=== PATIENT | female | born 1970 | race Caucasian/White ===

== ENCOUNTER 2019-11-27 07:34 | Outpatient (CLI) | payer OTHER, SELFPAY ==
--- NOTE | ~2019-11-27 | MM_ITS ---
EXAMINATION: MM screening chris BI w oumar HISTORY: Screening TECHNIQUE: Craniocaudal and mediolateral oblique 3-D tomosynthesis images were obtained and synthetic 2-D images were generated. CAD analysis was submitted and interpreted. COMPARISON: No prior mammogram is available for comparison at this institution. BREAST PARENCHYMAL COMPOSITION: The breasts are heterogeneously dense, which may obscure small masses . FINDINGS: There are asymmetries with possible architectural distortion centrally in the left breast. There is no mammographic evidence for malignancy in the right breast. IMPRESSION: 1. Left breast asymmetries with possible architectural distortion. 2. Additional mammographic views and possible breast ultrasound are recommended. BI-RADS Category 0: Incomplete: Needs additional imaging evaluation. Reviewed, dictated and finalized at location A. IMPRESSION: 1. Left breast asymmetries with possible architectural distortion. 2. Additional mammographic views and possible breast ultrasound are recommended . BI-RADS Category 0: Incomplete: Needs additional imaging evaluation.
== END 2019-11-27 07:35 | disposition home or self-care (01) ==
LOC: ANHIMG 07:40
PROVIDERS: PCP Family Medicine; Visit Provider Obstetrics & Gynecology
DX: Z12.31 Encounter for screening mammogram for malignant neoplasm of breast (principal); R92.8 Other abnormal and inconclusive findings on diagnostic imaging of breast
CPT/HCPCS: 77063; 77067

== ENCOUNTER 2019-12-25 11:07 | Outpatient (CLI) | payer OTHER, SELFPAY ==
--- NOTE | ~2019-12-25 | MMUS_ITS ---
EXAMINATION: MM diagnostic mammo unilat LT, US breast LT complete HISTORY: Follow-up left breast asymmetries TECHNIQUE: Additional 3-D tomosynthesis images of the left breast were performed and synthetic 2-D im ages were generated. CAD analysis was submitted and interpreted. High resolution left breast ultrasou nd was performed. COMPARISON: Comparison to multiple prior studies sequentially, with oldest reviewed study dated 10/17. BREAST PARENCHYMAL COMPOSITION: The breasts are heterogenously dense, which may obscure small masses. FINDINGS: MAMMOGRAPHIC FINDINGS: No discrete mass is identified. No discrete architectural distortion. No suspicious calcifications. ULTRASOUND: Complete left breast ultrasound: Normal heterogeneous echotexture without focal solid or cystic mass. IMPRESSION: 1. Probable benign asymmetry of the left breast. No sonographic correlate. 2. Recommend 6 month follow-up diagnostic left mammogram BI-RADS category 3, probably benign findings. Reviewed, dictated and finalized at location A. EQUIPMENT OPERATOR IMPRESSION: 1. Probable benign asymmetry of the left breast. No sonographic correlate. 2. Recommend 6 month follow-up diagnostic left mammogram BI-RADS category 3, probably benign findings.
== END 2019-12-25 11:08 | disposition home or self-care (01) ==
LOC: ANHIMG 11:09
PROVIDERS: PCP Family Medicine; Visit Provider Obstetrics & Gynecology
DX: R92.8 Other abnormal and inconclusive findings on diagnostic imaging of breast (principal)
CPT/HCPCS: 76641; 77065

== ENCOUNTER 2020-02-12 09:38 | Outpatient (NON) | payer OTHER, SELFPAY ==
[2020-02-12 17:51] LABS: SARS-CoV-2 RNA PCR Positive
== END 2020-02-12 09:39 ==
LOC: ANHCOVIDDT 09:40
PROVIDERS: PCP Family Medicine; Visit Provider Physician Assistant Medical
DX: U07.1 COVID-19 (principal)
CPT/HCPCS: 87635; C9803; U0003

== ENCOUNTER 2020-04-23 11:43 | Outpatient (CLI) | payer OTHER, SELFPAY ==
--- NOTE | ~2020-04-23 | MMUS_ITS ---
EXAMINATION: MM diagnostic chrsi BI w oumar, US breast LT complete HISTORY: Right breast pain. Left breast asymmetry. TECHNIQUE: Additional 3-D tomosynthesis images of the breasts were performed and synthetic 2-D images were generated. CAD analysis was submitted and interpreted. High resolution complete left breast ult rasound was performed. COMPARISON: Comparison to multiple prior studies sequentially, with oldest reviewed study dated 10/17. BREAST PARENCHYMAL COMPOSITION: Breast composed of scattered areas of fibroglandular density. FINDINGS: MAMMOGRAPHIC FINDINGS: There are no suspicious masses, calcifications or architectural distortion in either breast to sugges t malignancy. ULTRASOUND: Complete left breast ultrasound: Normal heterogeneous echotexture without focal mass. IMPRESSION: 1. No evidence for malignancy in either breast. 2. Routine yearly screening mammogram and regular clinical breast examination are recommended. BI-RADS Category 1: Negative Reviewed, dictated and finalized at location A. R FRAMER IMPRESSION: 1. No evidence for malignancy in either breast. 2. Routine yearly screening mammogram and regular clinical breast examination a re recommended. BI-RADS Category 1: Negative
== END 2020-04-23 11:44 | disposition home or self-care (01) ==
PROVIDERS: PCP Family Medicine; Visit Provider Obstetrics & Gynecology
DX: R92.8 Other abnormal and inconclusive findings on diagnostic imaging of breast (principal)
CPT/HCPCS: 76641; 77062; 77066; G0279

== ENCOUNTER 2022-03-10 01:26 | Day surgery (SDC) | payer OTHER, SELFPAY ==
[2022-02-24 11:54] VITALS: BMI 33.8
[2022-03-10 06:55] VITALS: BP 119/76; PULSE 91; RESP 20; TEMP 36.4; O2SAT 98
[2022-03-10] MEDS: LACTATED RINGERS 1,000 ML 150 ML IV CONT (07:09)
--- NOTE | 2022-03-10 08:21 | PM.HPGS ---
History of Present Illness History of Present Illness Consent: Risks, benefits, and alternatives have been discussed and questions answered. Patient agrees to proceed with procedure. Chief complaint: neoplasm screening Narrative: Lucero Combs is a 51 year old female here for first screening colonoscopy Review of Systems Constitutional: Constitutional: Denies headache(s) and Denies weakness Eyes: Eyes: Denies blurry vision ENT: Reports Normal hearing present, Denies headache(s) and Denies neck pain Cardiovascular: Cardiovascular: Denies chest pain and Denies dyspnea Respiratory: Respiratory: Denies dyspnea Gastrointestinal: Gastrointestinal: Reports no additional gastrointestinal complaints Genitourinary: Genitourinary: Denies dysuria Musculoskeletal: Musculoskeletal: Denies neck pain Integumentary/Breasts: Skin/Breast: Denies dry skin Neurologic: Reports Normal hearing present, Denies headache(s) and Denies weakness Psychiatric: Psychiatric: Denies anxiety Endocrine: Endocrine: Denies change in body appearance Hematologic/Lymphatic: Hematologic/Lymphatic: Denies easy bleeding Allergic/Immunologic: Allergic/Immunologic: Denies urticaria PMFSH Past Medical History Medical History (Updated 12/26/21 @ 11:38 by Lisandra Painter DO) Unspecified hearing loss, left ear Surgical History Surgical History History of delivery (~2003) History of delivery (~2005) Hx of foot surgery Family History Family History Father Hypertension Grandparent Family history of cardiovascular disease Malignant neoplasm of prostate Family history of malignant neoplasm of brain Family history of malignant neoplasm of breast Other Family history of malignant neoplasm Social History Social History (Updated 12/26/21 @ 11:27 by Darlene Borja CMA) Smoking status: Former smoker Tobacco type: cigarettes Smoking end date: 06/22/97 Alcohol intake: current Alcohol use details: rarely Substance use type: does not use Lack of Transportation: No Lack of Food: Never True Current Housing: I Have Housing Concerned About Future Housing: No Difficulty Paying Gas/Electric Bills: No Difficulty Paying for Meds: No Currently Unemployed: No Education: Bachelor's Degree Difficulty w/ Childcare or Family Care: No Living arrangements: with family Spiritual care concerns: No Meds Home Medications and Allergies Home Medications Medication Instructions Recorded Confirmed Type multivitamin 1 tablet PO DAILY 01/03/19 02/24/22 History cetirizine 10 mg tablet (Zyrtec) 10 mg PO DAILY PRN Allergy Symptoms 07/23/20 02/24/22 History drospirenone (contraceptive) 4 mg 4 mg PO DAILY 07/23/20 03/10/22 History (28) tablet (Slynd) fluticasone propionate 50 2 spray intranasal DAILY PRN 12/24/20 02/24/22 History mcg/actuation nasal Allergy Symptoms spray,suspension (Flonase Allergy Relief) albuterol sulfate 90 mcg/actuation 1 inh inhalation Q4H PRN shortness 08/01/21 02/24/22 Rx aerosol inhaler (ProAir HFA) of breath or wheezing #8.5 grams sertraline 25 mg tablet 25 mg PO DAILY 02/24/22 03/10/22 History cyclobenzaprine 10 mg tablet See Rx Instructions .Route 03/06/22 03/10/22 Rx .COMPLEX #30 tabs Allergies Allergy/AdvReac Type Severity Reaction Status Date / Time Penicillins Allergy Unknown Skin Verified 03/10/22 06:53 Reaction terbutaline Allergy Unknown Unknown Verified 03/10/22 06:53 Vital Signs Vital Signs - 24 hr 03/10/22 06:55 Temperature 97.6 F Pulse Rate 91 Respiratory Rate 20 Blood Pressure 119/76 Pulse Oximetry 98 Oxygen Delivery Room Air Exam Const: General: comfortable and no acute distress HENMT: Face/Nose/Sinus: Normal nares present Eyes: General: appearance normal, both eyes and all related structures
--- NOTE | 2022-03-10 08:23 | WPDANESEPPF ---
Anes - Initial Pre Proc Eval Procedure: Operation Date: 03/10/22 08:00 Proposed Procedures p Screening Colonoscopy - Anant Thayer MD Date/Time: 03/10/22 08:23 Surgeon: Anant Thayer MD Pre Op Diagnosis: neoplasm screening Patient Data Age: 51 Gender: F Height: 1.57 m Weight: 81.6 kg Last Vital Signs Temp 97.6 F 03/10/22 06:55 Pulse 91 03/10/22 06:55 Resp 20 03/10/22 06:55 BP 119/76 03/10/22 06:55 Pulse Ox 98 03/10/22 06:55 O2 Del Method Room Air 03/10/22 06:55 Allergies Allergy/AdvReac Type Severity Reaction Status Date / Time Penicillins Allergy Unknown Skin Verified 03/10/22 06:53 Reaction terbutaline Allergy Unknown Unknown Verified 03/10/22 06:53 Home Medications Medication Instructions Recorded Confirmed Type multivitamin 1 tablet PO DAILY 01/03/19 02/24/22 History cetirizine 10 mg tablet (Zyrtec) 10 mg PO DAILY PRN Allergy Symptoms 07/23/20 02/24/22 History drospirenone (contraceptive) 4 mg 4 mg PO DAILY 07/23/20 03/10/22 History (28) tablet (Slynd) fluticasone propionate 50 2 spray intranasal DAILY PRN 12/24/20 02/24/22 History mcg/actuation nasal Allergy Symptoms spray,suspension (Flonase Allergy Relief) albuterol sulfate 90 mcg/actuation 1 inh inhalation Q4H PRN shortness 08/01/21 02/24/22 Rx aerosol inhaler (ProAir HFA) of breath or wheezing #8.5 grams sertraline 25 mg tablet 25 mg PO DAILY 02/24/22 03/10/22 History cyclobenzaprine 10 mg tablet See Rx Instructions .Route 03/06/22 03/10/22 Rx .COMPLEX #30 tabs Patient hx anesthesia problems: none Family hx anesthesia problems: none Results Review: All pre-operative results and documents have been reviewed as part of the pre-operative evaluation. [facility] Past Medical History Medical History (Updated 12/26/21 @ 11:38 by Lisandra Painter DO) Unspecified hearing loss, left ear Surgical History Surgical History History of delivery (~2003) History of delivery (~2005) Hx of foot surgery Family History Family History Father Hypertension Grandparent Family history of cardiovascular disease Malignant neoplasm of prostate Family history of malignant neoplasm of brain Family history of malignant neoplasm of breast Other Family history of malignant neoplasm Social History Social History (Updated 12/26/21 @ 11:27 by Darlene Borja [facility]) Smoking status: Former smoker Tobacco type: cigarettes Smoking end date: 06/22/97 Alcohol intake: current Alcohol use details: rarely Substance use type: does not use Lack of Transportation: No Lack of Food: Never True Current Housing: I Have Housing Concerned About Future Housing: No Difficulty Paying Gas/Electric Bills: No Difficulty Paying for Meds: No Currently Unemployed: No Education: Bachelor's Degree Difficulty w/ Childcare or Family Care: No Living arrangements: with family Spiritual care concerns: No Anes - Eval Final PreProcedure Day of Procedure 03/10/22 08:23 Patient weight: obese Heart: regular rate and rhythm Lungs: clear to auscultation Airway: Mallampati scale class II Neurological: alert and oriented Last oral intake: >/= 8 hours ASA classification: II Emergent: no Anesthetic plan: proceed Anesthesia type and monitoring: general GIVS and standard monitoring Results Review: All pre-operative results and documents have been reviewed as part of the pre-operative evaluation. Informed Consent: The patient's anesthetic plan and its attendant risks and benefits were discussed with the patient/family/POA. Questions were solicited and answers provided to the satisfaction of the patient/family/POA.
[2022-03-10 08:46] VITALS: BP 114/75; PULSE 82; RESP 21; O2SAT 99
[2022-03-10 08:56] VITALS: BP 122/79; PULSE 71; RESP 17; O2SAT 100
[2022-03-10 09:06] VITALS: BP 121/82; PULSE 75; RESP 19; O2SAT 100
== END 2022-03-10 09:10 | disposition home or self-care (01) ==
PROVIDERS: PCP Family Medicine; Visit Provider Internal Medicine Gastroenterology
PROC: 0DJD8ZZ Inspection of Lower Intestinal Tract, Via Natural or Artificial Opening Endoscopic (ICD-10-PCS; CPT 45378; principal; 2022-03-10 08:00)
DX: Z12.11 Encounter for screening for malignant neoplasm of colon (principal); D12.2 Benign neoplasm of ascending colon; K51.90 Ulcerative colitis, unspecified, without complications; K64.8 Other hemorrhoids; Z79.51 Long term (current) use of inhaled steroids; Z87.891 Personal history of nicotine dependence; E66.9 Obesity, unspecified; Z68.32 Body mass index [BMI] 32.0-32.9, adult
CPT/HCPCS: 45380; 88305; J2704; J7120

== ENCOUNTER 2022-03-27 11:40 | Emergency (ER) | payer OTHER, SELFPAY ==
[2022-03-27 12:01] VITALS: BP 122/97; PULSE 89; RESP 16; TEMP 36.6; O2SAT 99
--- NOTE | 2022-03-27 12:10 | ED.URI ---
HPI - URI/Sore Throat General Stated Complaint: ear pain/drainage, congestion Time Seen by Provider: 03/27/22 12:05 Source: patient Mode of arrival: ambulatory Limitations: no limitations History of Present Illness HPI Narrative: Jason is a 51-year-old female patient presenting to the clinic today with complaints of sinus congestion and ear pain x2 weeks. She reports that her ears have been bothering her off and on with of runny nose. States that she is congested and at times having runny nose with clear nasal drainage. She denies any known fever or chills. She denies any sinus pressure at this time. She has been [id number] decongestants for her symptoms MD elicited complaint: sore throat and nasal congestion Related Data Home Medications Medication Instructions Recorded Confirmed multivitamin 1 tablet PO DAILY 01/03/19 03/27/22 cetirizine 10 mg tablet (Zyrtec) 10 mg PO DAILY PRN Allergy Symptoms 07/23/20 03/27/22 drospirenone (contraceptive) 4 mg 4 mg PO DAILY 07/23/20 03/27/22 (28) tablet (Slynd) fluticasone propionate 50 2 spray intranasal DAILY PRN 12/24/20 03/27/22 mcg/actuation nasal Allergy Symptoms spray,suspension (Flonase Allergy Relief) sertraline 25 mg tablet 25 mg PO DAILY 02/24/22 03/27/22 Allergies Allergy/AdvReac Type Severity Reaction Status Date / Time Penicillins Allergy Unknown Skin Verified 03/27/22 12:27 Reaction terbutaline Allergy Unknown Unknown Verified 03/27/22 12:27 Review of Systems Review of Systems: Pertinent positives per HPI. Patient denies any fever, chills, rash, headache, visual changes, dizziness, shortness of breath, chest pain, palpitations, nausea, vomiting, diarrhea, constipation, abdominal pain, or any urinary issues. [facility] Past Medical History Medical History Unspecified hearing loss, left ear Surgical History Surgical History History of delivery (~2003) History of delivery (~2005) Hx of foot surgery Family History Family History Father Hypertension Grandparent Family history of cardiovascular disease Malignant neoplasm of prostate Family history of malignant neoplasm of brain Family history of malignant neoplasm of breast Other Family history of malignant neoplasm Social History Social History Smoking status: Former smoker Tobacco type: cigarettes Smoking end date: 06/22/97 Alcohol intake: current Alcohol use details: rarely Substance use type: does not use Lack of Transportation: No Lack of Food: Never True Current Housing: I Have Housing Concerned About Future Housing: No Difficulty Paying Gas/Electric Bills: No Difficulty Paying for Meds: No Currently Unemployed: No Education: Bachelor's Degree Difficulty w/ Childcare or Family Care: No Living arrangements: with family Spiritual care concerns: No Comments At the time of my signature, I reviewed and agree with the nursing past medical, surgical, social, and family history. There is no relevant family history pertinent to the patient complaint. Exam Narrative: General: Well-developed, obese, in no apparent distress Head: Normocephalic, atraumatic Eyes: Pupils equally round and reactive to light bilaterally, EOM intact, sclera and conjunctive clear, no discharge, lids normal Ears: TMs intact and clear, ear canals clear, no drainage, grossly hearing normal. Nose: Nares patent, clear nasal discharge, moderate inflammation, no sinus tenderness. Mouth: Oral pharynx without lesions or masses, good dentition, MMM. Postnasal drip Neck: Supple, trachea midline, no enlargement of anterior or posterior cervical nodes, no thyroid masses or goiter palpable. Cardio: Regular rate an
== END 2022-03-27 12:13 | disposition home or self-care (01) ==
PROVIDERS: Emergency Provider Nurse Practitioner Family; PCP Family Medicine
DX: J06.9 Acute upper respiratory infection, unspecified (principal); H69.93 Unspecified Eustachian tube disorder, bilateral; Z87.891 Personal history of nicotine dependence
CPT/HCPCS: 99213; G0463

== ENCOUNTER 2022-10-20 12:12 | Outpatient (CLI) | payer OTHER, SELFPAY ==
--- NOTE | ~2022-10-20 | XR_ITS ---
Left Knee Technique: AP, lateral, sunrise, and oblique views were obtained. Clinical History: Pain Findings: No fracture or dislocation is seen. Osseous alignment is anatomic. Minimal patellar spurrin g noted. Soft tissues are unremarkable. No joint effusion is seen. Impression: Minimal patellar spurring. Reviewed, dictated and finalized at location . Impression: Minimal patellar spurring.
== END 2022-10-20 12:13 ==
PROVIDERS: PCP Family Medicine; Visit Provider Family Medicine
DX: M25.562 Pain in left knee (principal)
CPT/HCPCS: 73564

== ENCOUNTER → 2022-11-18 07:28 | Outpatient (CLI) | payer OTHER, SELFPAY ==
--- NOTE | ~2022-11-18 | MR_ITS ---
EXAMINATION: MR knee LT wo con DATE: 11/18/2022 08:10 INDICATION: left knee medial burning pain posterior pain x1yr, TECHNIQUE: Magnetic resonance imaging (MRI) of the left knee was performed without intravenous contra st. Sequences included axial PD-weighted FS FSE, coronal PD-weighted FSE and PD-weighted FS FSE, sagi ttal PD-weighted FSE, and sagittal T2-weighted FS FSE. COMPARISON: None. FINDINGS: Medial compartment: Meniscus intact. Mild diffuse cartilage thinning. Minimal osteophytosis. Lateral compartment: Meniscus intact. Mild diffuse cartilage thinning. Mild osteophytosis. Patellofemoral compartment: Moderate diffuse cartilage thinning. Mild osteophytosis. Ligaments and tendons: The ACL, PCL, MCL, and LCL are intact. Remaining flexor and extensor tendons are intact. Fluid: No significant fluid collection. Osseous/other: No suspicious focal or diffuse marrow signal. IMPRESSION: Mild tricompartmental osteoarthritis. Reviewed, dictated and finalized at location K.
== END ==
PROVIDERS: PCP Family Medicine; Visit Provider Family Medicine
DX: M17.12 Unilateral primary osteoarthritis, left knee (principal)
CPT/HCPCS: 73721

== ENCOUNTER 2023-02-07 10:54 | Outpatient (CLI) | payer OTHER, SELFPAY | END 2023-02-07 10:55 | disposition home or self-care (01) | LOC: ANHAUDASC 10:55 | PROVIDERS: PCP Family Medicine; Visit Provider Nurse Practitioner | DX: H90.3 Sensorineural hearing loss, bilateral (principal) | CPT/HCPCS: 92557; 92567 ==

== ENCOUNTER 2023-02-09 12:30 | Outpatient (RCR) | payer OTHER, SELFPAY ==
--- NOTE | 2022-12-05 11:56 | OPREHPOC ---
Outpatient Therapy Plan of Care This is a Multidisciplinary Plan of Care that may contain components documented by all disciplines (PT, OT, and ST.) PT Problem 1 PT Problem #1 Knowledge Deficit PT Goal 1 Goal Pt to be IND with issued HEP Target Visit 4 PT Problem 2 PT Problem #2 Pain PT Goal 1 Goal Pt to report knee pain no greater than 3/10 in the last week. Target Visit 4 PT Goal 2 Goal Pt to report 75% improvement in overall symptoms. Target Visit 4 PT Problem 3 PT Problem #3 Impaired Strength PT Goal 1 Goal Pt to improve hip strength to grossly 4/5 Target Visit 4 PT Goal 2 Goal pt to be able to lift and carry 30lb without an increase in symptoms. Target Visit 4 PT Problem 4 PT Problem #4 Impaired Gait PT Goal 1 Goal Pt to ambulate stairs without deviations. Target Visit 4
--- NOTE | 2022-12-05 11:56 | PTOPEVAL1 ---
Assessment and note entered by Erica Larry, PT, DPT Evaluation Information Assessment Status Evaluation Diagnosis L knee pain Onset 1 year Subjective Information Pt states since high school she has also gotten this feeling on patellar instability. She states even when rolling over in bed she will get pain under her knee cap. She reports a dull and achy pain along the inside of her L knee. She reports peri posterior leg pain. 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 Reported Pain Level Pain Score 2: Self Report Assessment PT Clinical Summary Lucero presents to therapy today for her initial evaluation with a diagnosis of L knee pain. Today she demonstrates good LE ROM and good patellar tracking. She demonstrates decreased tone generally throughout her BLEs. She demonstrates increased knee valgus with functional movements. Skilled therapy services are indicated to improve movement mechanics, to improve strength and to improve body awareness. Plan of Care Interventions Electrical Stimulation,Gait Training,Hot Pack/Cold Pack,Neuro Re-education,Patient/Caregiver Educati ,Therapeutic Activities,Therapeutic Exercise PT Services Indicated Yes Treatment Frequency and 1x/wk for 4 visits Duration These treatments will address the objective and functional deficits as defined above. The patient will be advanced safely and appropriately in order for the patient to progress towards his/her prior level of function. Additional exercises will be introduced and as well as a comprehensive home exercise program upon discharge, if needed, ?to ensure carryover of functional gains achieved in the clinic. This treatment plan has been reviewed and agreement upon by the patient.
--- NOTE | 2022-12-20 09:06 | PCPTNOTE ---
Patient called & cancelled scheduled appointment this date due to being sick.
--- NOTE | 2023-01-03 13:52 | PTOPPROG ---
Assessment and note entered by Erica Larry, PT, DPT Evaluation Information Assessment Status Progress Diagnosis L knee pain Onset 1 year Subjective Information Pt states the inside of her knee is doing better, she still get some achy pains. She states she still gets most of her pain when walking down the stairs but not to where she has to alter the way she is walking down them. Assessment PT Clinical Summary Lucero presents to therapy today for her progress report following 4 visits of skilled therapy to treat her diagnosis of L knee pain. Today she demonstrates improve LE strength with decreased pain reports. She continues to have notable instability during functional movements and with strength challenges. Her HEP was progressed today to address her decreased stability. She plans to follow up in a month. Plan of Care Interventions Electrical Stimulation,Gait Training,Hot Pack/Cold Pack,Neuro Re-education,Patient/Caregiver Educati ,Therapeutic Activities,Therapeutic Exercise PT Services Indicated Yes Treatment Frequency and follow up in one month Duration These treatments will address the objective and functional deficits as defined above. The patient will be advanced safely and appropriately in order for the patient to progress towards his/her prior level of function. Additional exercises will be introduced and as well as a comprehensive home exercise program upon discharge, if needed, ?to ensure carryover of functional gains achieved in the clinic. This treatment plan has been reviewed and agreement upon by the patient.
--- NOTE | 2023-01-31 09:36 | PCPTNOTE ---
Patient called & cancelled scheduled appointment this date due to having to work. She has been rescheduled.
--- NOTE | 2023-02-09 13:02 | PTOPDC ---
Assessment and note entered by Erica Larry, PT, DPT Evaluation Information Assessment Status Discharge Diagnosis L knee pain Onset 1 year Subjective Information Pt states she has not been as complaint with her exercises in the last couple of weeks. She states her knee pain has started to increase in the last couple of weeks as well, but not as bad as when she started. She states she had not had to go back to the chiropractor since starting therapy. Reported Pain Level Pain Score 0: Self Report Assessment PT Clinical Summary Lucero presents to therapy today for her progress report following 5 visits of skilled therapy to treat her diagnosis of L knee pain. Today she demonstrates improve LE strength with decreased pain reports. She has met or progressed well towards all of her therapy goals and no longer requires skilled therapy services at this time. She will be discharged
== END 2023-02-09 13:12 | disposition home or self-care (01) ==
LOC: ANHGOSHPT 12:30
PROVIDERS: PCP Family Medicine; Visit Provider Nurse Practitioner
DX: M25.562 Pain in left knee (principal)
CPT/HCPCS: 97110; 97161; 97530

== ENCOUNTER 2024-11-24 08:46 | Outpatient (CLI) | payer OTHER, SELFPAY ==
--- NOTE | ~2024-11-24 | XR_ITS ---
EXAMINATION: XR shoulder RT min 2V, 11/24/2024 9:11 CDT HISTORY: pain in right shoulder for 2 weeks, no inj, no surgeries COMPARISON: No comparisons available. Findings: No acute fracture or malalignment. Severe degenerative changes Soft tissues unremarkable. Impression: No acute fracture or malalignment. Reviewed, dictated and finalized at location P. Impression: No acute fracture or malalignment.
== END 2024-11-24 08:47 | disposition home or self-care (01) ==
PROVIDERS: PCP Family Medicine; Visit Provider Nurse Practitioner Family
DX: M25.511 Pain in right shoulder (principal)
CPT/HCPCS: 73030

== ENCOUNTER 2024-12-16 15:34 | Outpatient (RCR) | payer OTHER, SELFPAY ==
--- NOTE | 2024-12-16 16:35 | OPREHPOC ---
Outpatient Therapy Plan of Care This is a Multidisciplinary Plan of Care that may contain components documented by all disciplines (PT, OT, and ST.) PT Problem 1 PT Problem #1 Knowledge Deficit PT Goal 1 Goal / Goal Update 1. Patient to demonstrate independence with HEP for improved self-reliance of symptom management. Target Visit 4 PT Problem 2 PT Problem #2 Pain PT Goal 1 Goal / Goal Update 1. Patient to decrease subjective reports of pain to <3/10 for improved ADL tolerance. Target Visit 4 PT Problem 3 PT Problem #3 Impaired Range of Motion PT Goal 1 Goal / Goal Update 1. Pt to demonstrate an symmetric shoulder ER/IR functional reach to improve the ability to perform personal hygiene tasks. 2. Pt to demonstrate an increase of R shoulder AROM to >=155 deg to improve the ability to reach overhead. Target Visit 8 PT Problem 4 PT Problem #4 Impaired Strength PT Goal 1 Goal / Goal Update 1. Patient to demonstrate R shoulder strength >=4+ /5 for improved functional stability required for ADLs. Target Visit 8
--- NOTE | 2024-12-16 16:35 | PTOPEVAL1 ---
Assessment and note entered by Seng Becker PT Evaluation Information Assessment Status Evaluation Diagnosis R shoulder OA ICD-10 Condition Codes (PT) Pain in right shoulder M25.511 Subjective Information Pt states about a year ago she thought she had a shoulder impingement and was seen by PT and massage therapy, which helped at the time. Pt states the symptoms gradual came back and got worse than before. She now has difficulties with any over head activities, hygiene activities and anything that involves extending back. 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 X rays show severe degeneration no MRI at this point. Reported Pain Level Pain Score 4: Self Report Assessment PT Clinical Summary Patient presents to physical therapy with a primary issue of R shoulder pain over the past months. Patient demonstrates rotator cuff and scapular weakness, decreased R shoulder mobility, abnormal posture, and decreased flexibility that limit their ability to perform activities of daily living and functional movements. Patient will benefit from skilled physical therapy to address the above listed deficits and return to prior level of function. Home exercise program instructed and written handout provided, exercises tolerated well with no adverse effects to note post-session. Patient was also educated on anatomy, prognosis, home modalities, and plan of care Plan of Care Interventions Electrical Stimulation,Hot Pack/Cold Pack,Manual Therapy,Neuro Re-education,Therapeutic Activities, Therapeutic Exercise,Ultrasound,Other PT Services Indicated Yes Treatment Frequency and 2x week 8 visits Duration These treatments will address the objective and functional deficits as defined above. The patient will be advanced safely and appropriately in order for the patient to progress towards his/her prior level of function. Additional exercises will be introduced and as well as a comprehensive home exercise program upon discharge, if needed, ?to ensure carryover of functional gains achieved in the clinic. This treatment plan has been reviewed and agreement upon by the patient.
--- NOTE | 2024-12-18 12:22 | PTOPDC ---
Assessment and note entered by Seng Becker, PT Evaluation Information Assessment Status Discharge - Pt Not Present Diagnosis R shoulder OA ICD-10 Condition Codes (PT) Pain in right shoulder M25.511 Subjective Information Pt discharge from Physical therapy due to insurance denial. Reported Pain Level Pain Score 4: Self Report Assessment PT Clinical Summary Pt discharge from Physical therapy due to insurance denial. No treatments performed just initial evaluation. Plan of Care PT Services Indicated No
== END 2024-12-18 15:29 | disposition home or self-care (01) ==
LOC: ANHGOSHPT 15:34
PROVIDERS: PCP Family Medicine; Visit Provider Nurse Practitioner Family
DX: M25.511 Pain in right shoulder (principal)
CPT/HCPCS: 97110; 97140; 97161